=== PATIENT | female | born 2000 | race African-American/Black ===

== ENCOUNTER 2020-04-10 11:34 | Emergency (ER) | payer MEDICAID ==
[2020-04-10 12:18] LABS: ABSOLUTE BASOPHILS # (AUTO) 0.1 10^3/uL (0.0-0.2); ABSOLUTE LYMPHOCYTES (AUTO) 1.2 10^3/uL (0.5-4.7); ABSOLUTE MONOCYTES (AUTO) 0.4 10^3/uL (0.1-1.4); ABSOLUTE NEUT (AUTO) 6.6 10^3/uL (1.7-8.2); BASOPHILS % (AUTO) 0.7 % (0-2); EOSINOPHILS % (AUTO) 0.2 % (0-6); HEMATOCRIT 42.9 % (36.0-47.0); HEMOGLOBIN 14.6 g/dL (12.0-15.5); LYMPHOCYTES % (AUTO) 14.5 % (13-45); MEAN CORPUSCULAR HGB CONC 34.1 g/dL (32.0-36.0); MEAN CORPUSCULAR VOLUME 94 fl (80-97); MONOCYTES % (AUTO) 4.4 % (3-13); PLATELET COUNT 213 10^3/uL (150-450); RED BLOOD COUNT 4.57 10^6/uL (3.72-5.28); RED CELL DISTRIBUTION WIDTH 12.8 % (11.5-14.0); SEGMENTED NEUTROPHILS % (AUTO) 80.2 % (42-78); TOTAL CELLS COUNTED % (AUTO) 100 %; WHITE BLOOD COUNT 8.3 10^3/uL (4.0-10.5)
[2020-04-10 12:22] LABS: APPEARANCE,URINE CLEAR; BILIRUBIN,URINE NEGATIVE (NEGATIVE); COLOR,URINE YELLOW; GLUCOSE, URINE NEGATIVE (NEGATIVE); KETONES,URINE 80 mg/dL (NEGATIVE); LEUKOCYTE ESTERASE,URINE NEGATIVE (NEGATIVE); NITRITE,URINE NEGATIVE (NEGATIVE); PROTEIN,URINE NEGATIVE (NEGATIVE); URINE SPECIFIC GRAVITY 1.025; UROBILINOGEN,URINE NEGATIVE mg/dL (<2.0)
[2020-04-10 12:39] LABS: ALBUMIN 4.6 g/dL (3.5-5.0); ALKALINE PHOSPHATASE 76 U/L (38-126); ANION GAP 11 (5-19); ASPARTATE AMINO TRANSFERASE 23 U/L (14-36); BILIRUBIN,TOTAL 0.7 mg/dL (0.2-1.3); BLOOD UREA NITROGEN 17 mg/dL (7-20); CALCIUM 9.8 mg/dL (8.4-10.2); CARBON DIOXIDE 23 mmol/L (22-30); CHLORIDE 102 mmol/L (98-107); GLUCOSE 143 mg/dL (75-110); POTASSIUM 3.9 mmol/L (3.6-5.0); TOTAL PROTEIN 7.3 g/dL (6.3-8.2)
[2020-04-10] MEDS ORDERED: ONDANSETRON HCL INJ/PF 4 MG/2 ML SDV IV ONE (12:41)
[2020-04-10] MEDS ORDERED: NORMAL SALINE 1000 ML 1,000 ML IV ONE (12:41)
--- NOTE | 2020-04-10 13:16 | ER Document Report ---
ED GI/ - General Chief Complaint: Nausea/Vomiting Stated Complaint: NAUSEA/VOMITING/CHILLS/WEAK Time Seen by Provider: 04/10/20 12:22 Notes: CHIEF COMPLAINT: Nausea vomiting since last night HPI: 19-year-old female who recently moved here in the last week from [place] presenting for nausea vomiting that began last night. States this occurred after she did eat out. Denies abdominal pain other than some cramping, denies diarrhea, denies fever. Patient denies dysuria. ROS: See HPI - all other systems were reviewed and are otherwise negative Constitutional: no fever Eyes: no drainage, no blurred vision ENT: no runny nose, no sore throat Cardiovascular: no chest pain Resp: no SOB, no cough GI: + vomiting, no diarrhea, positive crampy 100% on room air not hypoxic abdominal pain : no dysuria Integumentary: no rash Allergy: no hives Musculoskeletal: no extremity pain or swelling Neurological: no numbness/tingling, no weakness MEDICATIONS: I agree with the patient medications as charted by the RN. ALLERGIES: I agree with the allergies as charted by the RN. PAST MEDICAL HISTORY/PAST SURGICAL HISTORY: Reviewed and agree as charted by RN. SOCIAL HISTORY: Reviewed and agree as charted by RN. FAMILY HISTORY: No significant familial comorbid conditions directly related to patient complaint EXAM: Reviewed vital signs as charted by RN. CONSTITUTIONAL: Alert and oriented and responds appropriately to questions. Well-appearing; well-nourished HEAD: Normocephalic; atraumatic EYES: PERRL; Conjunctivae clear, sclerae non-icteric ENT: normal nose; no rhinorrhea; moist mucous membranes; pharynx without lesions noted, no uvula edema or deviation, no tonsillar hypertrophy, phonation normal NECK: Supple without meningismus; non-tender; no cervical lymphadenopathy, no masses CARD: RRR; no murmurs, no clicks, no rubs, no gallops; symmetric distal pulses RESP: Normal chest excursion without splinting or tachypnea; breath sounds clear and equal bilaterally; no wheezes, no rhonchi, no rales, pulse oximetry 100% on room air not hypoxic ABD/GI: Normal bowel sounds; non-distended; soft, unable to reproduce any abdominal pain on palpation, no rebound, no guarding; no palpable organomegaly or masses. BACK: The back appears normal and is non-tender to palpation, there is no CVA tenderness EXT: Normal ROM in all joints; non-tender to palpation; no cyanosis, no effusions, no edema SKIN: Normal color for age and race; warm; dry; good turgor; no acute lesions noted NEURO: Moves all extremities equally; Motor and sensory function intact PSYCH: The patient's mood and manner are appropriate. Grooming and personal hygi bridgett are appropriate. MDM: 19-year-old female presenting for nausea vomiting that began last night. She has no reproducible abdominal pain to suggest appendicitis or other concerning intra-abdominal infection. Screening labs do not show acute emergent abnormalities she is not , urine negative for infection. Given recent travel will obtain COVID testing she will be person under investigation. We will orally challenge if successful anticipate discharge home with Zofran prescription - Related Data Allergies/Adverse Reactions: codeine Allergy (Verified 04/10/20 11:54) Past Medical History - Social History Smoking Status: Never Smoker Chew tobacco use (# tins/day): No Frequency of alcohol use: None Drug Abuse: Marijuana Family History: Reviewed & Not Pertinent Past Surgical History: Reports: Hx Gynecologic Surgery - d&c Physical Exam - Vital signs Vitals: Temp 98.7 F 04/10/20 11:35 Course - Vital Signs Vital signs: Temp Pulse Resp BP Pulse Ox 98.7 F 64 16 122/64 100 04/10/20 12:57 04/10/20 12:57 04/10/20 12:57 04/10/20 12:57 04/10/20 12:57 - Laboratory Result Diagrams: 04/10/20 12:03 04/10/20 12:03 Laboratory results interpreted by me: 04/10/20 04/10/20 04/10/20 12:03 12:03 12:03 Seg Neutrophils % 80.2 H Sodium 135.5 L Glucose 143 H Urine Ketones 80 H Discharge - Discharge Clinical Impression: Person under investigation for COVID-19 Nausea & vomiting Qualifiers: Vomiting type: unspecified Vomiting Intractability: non-intractable Qualified Code(s): R11.2 - Nausea with vomiting, unspecified Condition: Stable Disposition: HOME, SELF-CARE Additional Instructions: Take Zofran for nausea vomiting. Your lab work did not show acute emergent abnormalities today. Return to the emergency department if you develop any focal abdominal pain or fever greater than 101. You are considered a person under investigation at this time make sure that you self quarantine at home until you get a negative COVID result Prescriptions: Ondansetron [Zofran Odt 4 mg Tablet] 1 - 2 tab PO Q4H PRN #15 tab.rapdis PRN Reason: For Nausea/Vomiting Referrals: JAVED ZAFAR MD [ACTIVE STAFF] - Follow up as needed
[2020-04-10 14:16] VITALS: BP 132/71
== END 2020-04-10 14:42 | disposition home or self-care (01) ==
LOC: ER 11:34
DX: R11.2 Nausea with vomiting, unspecified (principal); R53.1 Weakness; Z20.828 Contact with and (suspected) exposure to other viral communicable diseases
CPT/HCPCS: 99283; 96361; 96374; 36415; 85025; 87635; 81025; 80053; 81001; J2405; J7030; C9803